=== PATIENT | male | born 1995 | race Caucasian/White ===

== ENCOUNTER 2017-03-16 16:53 | Emergency (ER) | payer OTHER ==
[~2017-03-16] VITALS: Ht 172.7 cm; Wt 85.0 kg
[2017-03-16] MEDS ORDERED: IBUPROFEN 600 MG TAB PO ONE (18:45)
[2017-03-16] MEDS ORDERED: IBUP-1022 PO (19:11)
[2017-03-16 19:18] VITALS: BP 137/85
--- NOTE | 2017-03-16 19:26 | REP ---
HISTORY: Pain after trauma. FINDINGS: The joint spaces are symmetric and relatively well maintained. There is no evidence of acute fracture or destructive osseous lesion. IMPRESSION: Negative. Signed by Elian Dimas DO 03/16/2017 07:45 P
== END 2017-03-16 19:38 | disposition home or self-care (01) ==
LOC: M ED 16:53
DX: S63.92XA Sprain of unspecified part of left wrist and hand, initial encounter (principal); W01.190A Fall on same level from slipping, tripping and stumbling with subsequent striking against furniture, initial encounter; Y92.89 Other specified places as the place of occurrence of the external cause; Y93.89 Activity, other specified; Y99.0 Civilian activity done for income or pay; Z88.8 Allergy status to other drugs, medicaments and biological substances

== ENCOUNTER 2018-07-10 11:55 | Emergency (ER) | payer OTHER ==
[~2018-07-10] VITALS: Ht 170.2 cm; Wt 81.0 kg
[2018-07-10 11:55] VITALS: BP 135/85
[~2018-07-10 11:55] MED LIST: IBUP-1022 PO
--- NOTE | 2018-07-10 12:56 | REP ---
LEFT WRIST COMPLETE: 07/10/2018. Comparison: Left hand 03/16/2017. Clinical history: Trauma. Findings: Four views were provided. Distal radius and ulna without fracture or focal lesion. There is a bone island in the distal radial epiphysis, benign. The carpal bones and their joint spaces symmetric and preserved without fracture, subluxation or focal lesion. Proximal metacarpals grossly intact. Bone island in the distal shaft of the first metacarpal. Impression: 1. No evidence of fracture, subluxation, joint abnormality or other acute bony finding about the wrist. Small bone islands in the distal first metacarpal shaft and epiphysis of the distal radius, stable. Electronically Signed by Bandar Cabrera MD 07/10/2018 08:41 P
== END 2018-07-10 13:10 | disposition home or self-care (01) ==
LOC: M ED 11:55
DX: S63.502A Unspecified sprain of left wrist, initial encounter (principal); S60.512A Abrasion of left hand, initial encounter; W01.0XXA Fall on same level from slipping, tripping and stumbling without subsequent striking against object, initial encounter; Y92.89 Other specified places as the place of occurrence of the external cause; Y99.0 Civilian activity done for income or pay; Z88.8 Allergy status to other drugs, medicaments and biological substances